=== PATIENT | female | born 1995 | race African-American/Black ===

== ENCOUNTER 2017-03-14 01:18 | Emergency (ER) | payer OTHER ==
--- NOTE | 2017-03-14 01:52 | PDOC ---
History of Present Illness - General Chief Complaint: Allergic Reaction Stated Complaint: ALLERGY Time Seen by Provider: 03/14/17 01:39 History Source: Patient Exam Limitations: No Limitations - History of Present Illness Initial Comments: 03/14/17 01:49 Patient presents to ED c/o needing medication refill. Patient state she ran out of Albuterol Inhaler and will be traveling out of the country this week and is concerned. Denies any other complaints at this time. Timing/Duration: reports: getting worse Severity: reports: mild Possible Cause: Yes: occasional episodes Associated Symptoms: denies: denies symptoms, chest pain/soreness, cough, dizziness, earache, facial pain, fever/chills, headache, lightheadedness, muscle aches, nasal congestion, nasal drainage, shortness of breath, sinus infection, sore throat, wheezing, other Aspirin Received prior to arrival: No: no aspirin today, unknown, 81 mg x 1, 81 mg x 2, 81 mg x 3, 81 mg x 4, 325 mg x 1, provided at home, provided by EMS, provided by ED ASA Contraindications(Core Measure): No: Allergy, Other, Active Blding w/i 24 hrs., Plavix, Receiving Warfarin Past History - Travel Traveled outside of the country in the last 30 days: No Close contact w/someone who was outside of country & ill: No - Past Medical History Allergies/Adverse Reactions: Allergies Allergy/AdvReac Type Severity Reaction Status Date / Time No Known Allergies Allergy Verified 03/14/17 01:44 Home Medications: Ambulatory Orders Albuterol Sulfate [Proair Hfa] 1 - 2 inh PO QID #1 inhaler 10/17/15 Prednisone [Deltasone -] 20 mg PO BID #10 tablet 10/17/15 Albuterol Sulfate Inhaler - [Ventolin HFA Inhaler -] 1 - 2 inh PO Q4H PRN #1 inhaler 03/14/17 - Psycho/Social/Smoking Cessation Hx Anxiety: No Suicidal Ideation: No Smoking History: Never smoked Have you smoked in the past 12 months: No Information on smoking cessation initiated: No Hx Alcohol Use: No Drug/Substance Use Hx: No Substance Use Type: None Review of Systems - Review of Systems Able to Perform ROS?: Yes Is the patient limited Palestinian proficient: No Constitutional: No: Chills, Fever Respiratory: No: Cough, Stridor, Wheezing Cardiac (ROS): No: Chest Pain, Palpitations, Syncope, Chest Tightness ABD/GI: No: Constipated, Diarrhea, Nausea, Poor Appetite, Poor Fluid Intake, Vomiting : No: Burning, Dysuria, Hematuria, Incontinence Musculoskeletal: No: Back Pain, Muscle Pain Integumentary: No: Bruising, Dryness, Erythema, Sweating All Other Systems: Reviewed and Negative *Physical Exam - Vital Signs Last Vital Signs Temp Pulse Resp BP Pulse Ox 98.9 F 71 19 115/81 100 03/14/17 01:42 03/14/17 01:42 03/14/17 01:42 03/14/17 01:42 03/14/17 01:42 - Physical Exam General Appearance: Yes: Nourished, Appropriately Dressed. No: Apparent Distress, Mild Distress, Moderate Distress, Severe Distress HEENT: positive: EOMI, EPHRAIM, Normal ENT Inspection, Normal Voice, Symmetrical, TMs Normal, Pharynx Normal Neck: positive: Trachea midline, Supple. negative: Decreased range of motion, Stridor, Lymphadenopathy (R), Lymphadenopathy (L) Respiratory/Chest: positive: Lungs Clear, Normal Breath Sounds. negative: Chest Tender, Respiratory Distress, Accessory Muscle Use, Labored Respiration, Rapid RR, Stridor, Wheezing Cardiovascular: positive: Regular Rhythm, Regular Rate Gastrointestinal/Abdominal: positive: Normal Bowel Sounds, Soft. negative: Distended, Guarding, Rebound, Tenderness Musculoskeletal: positive: Normal Inspection. negative: CVA Tenderness Extremity: positive: Normal Capillary Refill, Normal Inspection, Normal Range of Motion. 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
[2017-03-14 01:54] VITALS: BP 115/81; PULSE 71; TEMP 98.9; BMI 22.3
== END 2017-03-14 03:06 | disposition home or self-care (01) ==
LOC: JER 01:18 → SUPCPDRO 01:18 → JER 03:06
DX: J30.89 Other allergic rhinitis (principal)
CPT/HCPCS: 99281-25

== ENCOUNTER 2017-05-18 13:36 | Emergency (ER) | payer OTHER ==
[2017-05-18 13:44] VITALS: BP 110/51; PULSE 73; TEMP 97.8; BMI 25.0
--- NOTE | 2017-05-18 14:12 | PDOC ---
History of Present Illness - General Chief Complaint: Foreign Body (FB) Stated Complaint: THROAT PROBLEM Time Seen by Provider: 05/18/17 13:54 History Source: Patient Exam Limitations: No Limitations - History of Present Illness Initial Comments: 05/18/17 14:10 Was at a restaurant last night, eating chicken and chewed on small piece of bone and felt an impale left posterior pharynx. Patient has no swelling to throat, no difficulty with airway or breathing. But was concerned and has pain to the area where she knows there is a foreign body lodged. Timing/Duration: unsure, 24 hours Severity: mild Associated Symptoms: reports: denies symptoms. denies: fever/chills Past History - Travel Traveled outside of the country in the last 30 days: No Close contact w/someone who was outside of country & ill: No - Past Medical History Allergies/Adverse Reactions: Allergies Allergy/AdvReac Type Severity Reaction Status Date / Time No Known Allergies Allergy Verified 05/18/17 13:41 Home Medications: Ambulatory Orders Albuterol Sulfate [Proair Hfa] 1 - 2 inh PO QID #1 inhaler 10/17/15 Prednisone [Deltasone -] 20 mg PO BID #10 tablet 10/17/15 Albuterol Sulfate Inhaler - [Ventolin HFA Inhaler -] 1 - 2 inh PO Q4H PRN #1 inhaler 03/14/17 Albuterol 0.083% Nebulizer Perla [Ventolin 0.083% Nebulizer Soln -] 1 neb NEB Q4H PRN #30 vial 05/18/17 Asthma: Yes - Psycho/Social/Smoking Cessation Hx Anxiety: No Suicidal Ideation: No Smoking History: Never smoked Have you smoked in the past 12 months: No Hx Alcohol Use: No Drug/Substance Use Hx: No Substance Use Type: None Review of Systems - Review of Systems Able to Perform ROS?: Yes Is the patient limited Macedonian proficient: Yes Constitutional: Yes: See HPI. No: Symptoms Reported, Fever, Malaise HEENTM: Yes: Symptoms Reported, See HPI, Throat Pain, Difficulty Swallowing. No : Throat Swelling Respiratory: Yes: See HPI. No: Symptoms reported, Cough Neurological: Yes: See HPI. No: Symptoms reported All Other Systems: Reviewed and Negative *Physical Exam - Vital Signs Last Vital Signs Temp Pulse Resp BP Pulse Ox 97.8 F 73 16 110/51 100 05/18/17 13:41 05/18/17 13:41 05/18/17 13:41 05/18/17 13:41 05/18/17 13:41 - Physical Exam General Appearance: Yes: Nourished, Appropriately Dressed, Apparent Distress, Mild Distress HEENT: positive: EPHRAIM, TMs Normal. negative: Pharynx Normal (no erythema, redness or swelling, airway is patent. Left tonsil reveals a foreign body white sticklike projection from midpoint tonsil.) Neck: positive: Supple. 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 Approximately 1 cm white object consistent with chickenbone was extracted. There was no bleeding post procedure) ED Treatment Course - RADIOLOGY Radiology Studies Ordered: Category Date Time Status NECK SOFT TISSUE [RAD] Stat Radiology 05/18/17 14:08 Ordered Medical Decision Making - Medical Decision Making 05/18/17 16:27 FB extraction from left tonsil. *DC/Admit/Observation/Transfer Diagnosis at time of Disposition: Foreign body of throat Qualifiers: Encounter type: initial encounter Qualified Code(s): T17.208A - Unspecified foreign body in pharynx causing other injury, initial encounter - Discharge Dispostion Disposition: HOME Condition at time of disposition: Stable Admit: No - Prescriptions Prescriptions: Albuterol 0.083% Nebulizer Perla [Ventolin 0.083% Nebulizer Soln -] 1 neb NEB Q4H PRN #30 vial PRN Reason: Cough - Referrals Referrals: Grupo Pina MD [Staff Physician] - - Patient Instructions Printed Discharge Instructions: DI for Foreign Body, Swallowed-Adult Additional Instructions: Rest, drink lots of fluids: Teas, water, soups Eat cold things: Ice cream, ice pops, ice chips Saltwater gargles Avoid contact with others until fevers and pain resolved Lots of handwashing and good hygiene, this is contagious Tylenol or Motrin for fever and pain Followup with private physician in one to 2 days as needed if not improving Return to emergency department for worsened symptoms, fevers, dehydration - Post Discharge Activity Work/School Note: Back to Work
[2017-05-18] MEDS ORDERED: IBUPROFEN 100 MG/5 ML UNIT DOSE CUPS ONE (14:36)
[2017-05-18] MEDS ORDERED: TETRACAINE/BENZOCAINE/BUTAMBEN 20 GM SPR TP ONE (14:57)
== END 2017-05-18 15:33 | disposition home or self-care (01) ==
LOC: JERFT 13:36
PROC: 0CCM7ZZ Extirpation of Matter from Pharynx, Via Natural or Artificial Opening (ICD-10-PCS; principal; 2017-05-18)
DX: T17.228A Food in pharynx causing other injury, initial encounter (principal); X58.XXXA Exposure to other specified factors, initial encounter; Y92.511 Restaurant or cafe as the place of occurrence of the external cause
CPT/HCPCS: 70360-TC; 99281-25